=== PATIENT | male | born 1970 | race Hispanic/Latino ===

== ENCOUNTER 2022-11-07 20:13 | Observation (INO) | payer SELFPAY ==
[2022-11-07 20:42] LABS: #Basophils 0.1 thou/uL (0.0-0.2); #Monocytes 0.9 thou/uL (0.11-0.59); #Neutrophils 13.6 thou/uL (1.40-6.50); %Basophils 0.5 % (0.0-1.0); %Lymphocytes 10.5 % (21.0-51.0); %Monocytes 5.2 % (0.0-10.0); %Neutrophils 83.2 % (42.0-75.0); Hemoglobin 16.8 g/dL (14.0-18.0); Mean Corpuscular HGB CONC 34.1 g/dL (32.0-36.0); Mean Corpuscular Hemoglobin 30.9 pg (27.0-31.0); Mean Corpuscular Volume 90.6 fl (78.0-98.0); Mean Platelet Volume 10.8 fL (7.4-10.4); Platelet Count 293 10x3/uL (130-400); RBC Distribution Width 12.3 % (11.5-14.5); Red Blood Cell (RBC) Count 5.44 mill/uL (4.70-6.10); White Blood Cell (WBC) Count 16.4 10x3/uL (4.8-10.8)
[2022-11-07] MEDS ORDERED: Aspirin Chewable 81 MG TAB ONE (20:55)
[2022-11-07 21:04] LABS: ALT (SGPT) 26 U/L (8-55); AST (SGOT) 24 U/L (5-34); Albumin 5.6 g/dL (3.5-5.0); Alkaline Phosphatase 128 U/L (40-110); Anion Gap 19 mmol/L (10-20); BUN (Urea Nitrogen) 22 mg/dL (8.4-25.7); Bilirubin, Total 0.9 mg/dL (0.2-1.2); Calc. Creatinine Clearance 0 mL/min (70-130); Calcium 11.3 mg/dL (7.8-10.44); Carbon Dioxide 23 mmol/L (22-29); Chloride 96 mmol/L (98-107); Estimated GFR 37; Globulin 3.7 g/dL (2.4-3.5); Glucose 102 mg/dL (70-105); Lipase 17 U/L (8-78); Potassium 4.6 mmol/L (3.5-5.1); Protein, Total 9.3 g/dL (6.0-8.3); Sodium 133 mmol/L (136-145)
[2022-11-07] MEDS ORDERED: Nitroglycerin 2% Ointment 1 INCH/1 GM Packet ONE (23:28)
[2022-11-08] MEDS ORDERED: Acetaminophen 325 MG TAB PO PRN (01:50)
[2022-11-08] MEDS ORDERED: Ondansetron PF 4 MG/2 ML Vial IVP PRN (01:50)
[2022-11-08] MEDS ORDERED: Nitroglycerin 0.4 MG TAB (25 Tab Bottle) SL PRN (01:57)
[2022-11-08 02:11] LABS: Amphetamine Not Detected (NotDetected); Barbiturates Screen Not Detected (NotDetected); Benzodiazepine Screen Not Detected (NotDetected); Cocaine Metabolite Screen Not Detected (NotDetected); Methadone Not Detected (NotDetected); Methamphetamine Not Detected (NotDetected); Opiate Screen Not Detected (NotDetected); Oxycodone Screen Not Detected (NotDetected); Phencyclidine (PCP) Not Detected (NotDetected); THC/Cannabinoid Screen Not Detected (NotDetected); Tricyclic Screen Not Detected (NotDetected)
[2022-11-08] MEDS: Sodium Chloride 0.9% 1,000 ML IV SCH ×3 (02:23→23:35)
[2022-11-08 03:00] LABS: Troponin I Less than 0.010 ng/mL (< 0.028)
[2022-11-08 03:22] LABS: Bilirubin Negative (Negative); Blood, Urine Negative (Negative); CAUTI Indications for Culture Dysuria,urgency,freq; Clarity Turbid (Clear); Glucose, Urine (Dipstick) Normal (Negative); Ketone, Urine Trace mg/dL (Negative); Leukocyte Negative Leu/uL (Negative); Nitrite Negative (Negative); Protein, Urine (Dipstick) 30 mg/dL (Neg-Trace); Specific Gravity, Urine 1.025 (1.002-1.036); Squamous Epithelial None Seen HPF (0-3); Urobilinogen Normal mg/dL (Less than 2); WBC/HPF 0-3 HPF (0-3)
[2022-11-08 03:42] LABS: Bacteria/HPF Rare-Few HPF (None Seen); Urine Culture Reflex No No
[2022-11-08 06:22] LABS: #Basophils 0.1 thou/uL (0.0-0.2); #Monocytes 0.9 thou/uL (0.11-0.59); #Neutrophils 8.6 thou/uL (1.40-6.50); %Basophils 0.5 % (0.0-1.0); %Eosinophils 0.3 % (0.0-10.0); %Lymphocytes 18.3 % (21.0-51.0); %Monocytes 7.9 % (0.0-10.0); %Neutrophils 72.4 % (42.0-75.0); Mean Corpuscular HGB CONC 33.8 g/dL (32.0-36.0); Mean Corpuscular Hemoglobin 31.2 pg (27.0-31.0); Mean Corpuscular Volume 92.3 fl (78.0-98.0); Platelet Count 260 10x3/uL (130-400); RBC Distribution Width 12.4 % (11.5-14.5); Red Blood Cell (RBC) Count 4.81 mill/uL (4.70-6.10); White Blood Cell (WBC) Count 11.9 10x3/uL (4.8-10.8)
[2022-11-08 06:43] LABS: Troponin I Less than 0.010 ng/mL (< 0.028)
[2022-11-08 06:45] LABS: Anion Gap 12 mmol/L (10-20); BUN (Urea Nitrogen) 18 mg/dL (8.4-25.7); Calc. Creatinine Clearance 107 mL/min (70-130); Calcium 9.3 mg/dL (7.8-10.44); Carbon Dioxide 24 mmol/L (22-29); Cardiac Risk 3.7 (Less than 4.5); Chloride 102 mmol/L (98-107); Cholesterol 193 mg/dl (< 200 Desired); Estimated GFR 86; Glucose 94 mg/dL (70-105); HDL Cholesterol 52 mg/dL (>60 Neg Risk); LDL Cholesterol, Calculated 106 mg/dL; Potassium 3.8 mmol/L (3.5-5.1); Sodium 134 mmol/L (136-145); Triglycerides 175 mg/dL (Less than 150)
[2022-11-08] MEDS ORDERED: ADENOSINE 60 MG/20 ML SDV ONE (10:13)
[2022-11-08] MEDS ORDERED: Morphine 4 MG/ML VIAL ONE (10:16)
[2022-11-08] MEDS: Heparin 5,000 UNITS/ML VIAL SC SCH ×2 (10:22→19:25)
[2022-11-08] MEDS ORDERED: Morphine 4 MG/ML VIAL SLOW IVP SCH (10:30)
[2022-11-08] MEDS ORDERED: Morphine 4 MG/ML VIAL SLOW IVP PRN (13:00)
[2022-11-08 16:29] VITALS: BMI 32.3
[2022-11-08] MEDS ORDERED: Atorvastatin Calcium 40 MG TAB PO SCH (21:00)
[2022-11-08 23:02] VITALS: TEMP 98.1
[2022-11-09] MEDS: Sodium Chloride 0.9% 1,000 ML IV SCH (03:21)
[2022-11-09 04:49] LABS: #Basophils 0.1 thou/uL (0.0-0.2); #Eosinphils 0.1 thou/uL (0.0-0.7); #Monocytes 0.7 thou/uL (0.11-0.59); #Neutrophils 6.2 thou/uL (1.40-6.50); %Basophils 0.8 % (0.0-1.0); %Lymphocytes 24.1 % (21.0-51.0); %Monocytes 7.3 % (0.0-10.0); %Neutrophils 66.3 % (42.0-75.0); Hemoglobin 14.8 g/dL (14.0-18.0); Mean Corpuscular HGB CONC 33.4 g/dL (32.0-36.0); Mean Corpuscular Hemoglobin 31.3 pg (27.0-31.0); Mean Corpuscular Volume 93.7 fl (78.0-98.0); Mean Platelet Volume 11.3 fL (7.4-10.4); Platelet Count 239 10x3/uL (130-400); RBC Distribution Width 12.2 % (11.5-14.5); Red Blood Cell (RBC) Count 4.73 mill/uL (4.70-6.10); White Blood Cell (WBC) Count 9.3 10x3/uL (4.8-10.8)
[2022-11-09 05:13] LABS: Anion Gap 12 mmol/L (10-20); BUN (Urea Nitrogen) 15 mg/dL (8.4-25.7); Calc. Creatinine Clearance 135 mL/min (70-130); Calcium 8.7 mg/dL (7.8-10.44); Carbon Dioxide 23 mmol/L (22-29); Chloride 105 mmol/L (98-107); Estimated GFR 106; Glucose 96 mg/dL (70-105); Potassium 3.7 mmol/L (3.5-5.1); Sodium 136 mmol/L (136-145)
[2022-11-09 07:57] VITALS: BP 129/71
[2022-11-09] MEDS ORDERED: Aspirin 81 mg Enteric Coated Tablet PO SCH (09:00)
[2022-11-09] MEDS: Heparin 5,000 UNITS/ML VIAL SC SCH (09:17)
== END 2022-11-09 12:45 | disposition home or self-care (01) ==
LOC: ERS 20:13 → ERHOLD 23:39 → 2SW 11-08 13:01
PROVIDERS: ADMIT Internal Medicine; ATTEND Family Medicine
DX: R07.89 Other chest pain (principal); I10 Essential (primary) hypertension; N17.9 Acute kidney failure, unspecified; E83.52 Hypercalcemia; D72.829 Elevated white blood cell count, unspecified; Z79.82 Long term (current) use of aspirin; Z79.899 Other long term (current) drug therapy
CPT/HCPCS: 36415; 71045; 78452; 80048; 80053; 80061; 80306; 81001; 82550; 83036; 83690; 84484; 85025; 93005; 93017; 96361; 96372; 96374; A9500; G0378; J0153; J1644; J2270; J7050

== ENCOUNTER 2022-12-01 09:48 | Inpatient (IN) | payer SELFPAY ==
[2022-12-01] MEDS ORDERED: Iopamidol-370 76% 500 ML MDV (1 ML CHARGE) ONE (10:18)
[2022-12-01 10:38] LABS: #Basophils 0.1 thou/uL (0.0-0.2); #Eosinphils 0.1 thou/uL (0.0-0.7); #Monocytes 0.7 thou/uL (0.11-0.59); #Neutrophils 7.6 thou/uL (1.40-6.50); %Basophils 0.6 % (0.0-1.0); %Eosinophils 0.7 % (0.0-10.0); %Lymphocytes 23.8 % (21.0-51.0); %Monocytes 6.4 % (0.0-10.0); Hemoglobin 15.8 g/dL (14.0-18.0); Mean Corpuscular HGB CONC 33.8 g/dL (32.0-36.0); Mean Corpuscular Hemoglobin 30.6 pg (27.0-31.0); Mean Corpuscular Volume 90.7 fl (78.0-98.0); Platelet Count 269 10x3/uL (130-400); Red Blood Cell (RBC) Count 5.16 mill/uL (4.70-6.10); White Blood Cell (WBC) Count 11.1 10x3/uL (4.8-10.8)
[2022-12-01 10:59] LABS: ALT (SGPT) 22 U/L (8-55); AST (SGOT) 16 U/L (5-34); Albumin 4.9 g/dL (3.5-5.0); Alkaline Phosphatase 106 U/L (40-110); Anion Gap 17 mmol/L (10-20); BUN (Urea Nitrogen) 16 mg/dL (8.4-25.7); Bilirubin, Total 1.1 mg/dL (0.2-1.2); Calc. Creatinine Clearance 0 mL/min (70-130); Calcium 10.1 mg/dL (7.8-10.44); Carbon Dioxide 23 mmol/L (22-29); Chloride 99 mmol/L (98-107); Estimated GFR 105; Globulin 3.1 g/dL (2.4-3.5); Glucose 90 mg/dL (70-105); Potassium 4.5 mmol/L (3.5-5.1); Sodium 134 mmol/L (136-145)
[2022-12-01] MEDS ORDERED: Aspirin Chewable 81 MG TAB ONE (11:24)
[2022-12-01] MEDS ORDERED: Nitroglycerin 2% Ointment 1 INCH/1 GM Packet ONE ×2 (11:24→11:25)
[2022-12-01 12:13] LABS: CK (CPK) 85 U/L (30-200); Lipase 15 U/L (8-78)
[2022-12-01] MEDS ORDERED: hydrALAZINE 20 MG/ML VIAL SLOW IVP PRN (12:13)
[2022-12-01] MEDS ORDERED: Acetaminophen 325 MG TAB PO PRN (12:14)
[2022-12-01] MEDS ORDERED: Ondansetron ODT 4 MG TAB PO PRN (12:14)
[2022-12-01] MEDS ORDERED: Ondansetron PF 4 MG/2 ML Vial IVP PRN (12:14)
[2022-12-01] MEDS ORDERED: Sodium Chloride 0.9% 1,000 ML IV SCH (12:30)
[2022-12-01 13:36] LABS: Cardiac Risk 3.6 (Less than 4.5)
[2022-12-01 14:13] LABS: Troponin I Less than 0.010 ng/mL (< 0.028)
[2022-12-01 14:39] VITALS: BMI 33.0
[2022-12-01 17:16] LABS: Troponin I Less than 0.010 ng/mL (< 0.028)
[2022-12-01] MEDS ORDERED: Communication Order-Pharmacy FS SCH (19:30)
[2022-12-02 06:01] LABS: #Basophils 0.1 thou/uL (0.0-0.2); #Eosinphils 0.1 thou/uL (0.0-0.7); #Monocytes 0.8 thou/uL (0.11-0.59); #Neutrophils 10.2 thou/uL (1.40-6.50); %Basophils 0.5 % (0.0-1.0); %Eosinophils 0.7 % (0.0-10.0); %Lymphocytes 14.9 % (21.0-51.0); %Monocytes 5.9 % (0.0-10.0); %Neutrophils 77.6 % (42.0-75.0); Hemoglobin 14.3 g/dL (14.0-18.0); Mean Corpuscular HGB CONC 33.6 g/dL (32.0-36.0); Mean Corpuscular Volume 92.2 fl (78.0-98.0); Mean Platelet Volume 11.5 fL (7.4-10.4); Platelet Count 228 10x3/uL (130-400); RBC Distribution Width 12.2 % (11.5-14.5); Red Blood Cell (RBC) Count 4.61 mill/uL (4.70-6.10); White Blood Cell (WBC) Count 13.1 10x3/uL (4.8-10.8)
[2022-12-02 06:22] LABS: Anion Gap 12 mmol/L (10-20); BUN (Urea Nitrogen) 16 mg/dL (8.4-25.7); Calc. Creatinine Clearance 134 mL/min (70-130); Calcium 9.2 mg/dL (7.8-10.44); Carbon Dioxide 24 mmol/L (22-29); Chloride 106 mmol/L (98-107); Estimated GFR 106; Glucose 95 mg/dL (70-105); Potassium 4.2 mmol/L (3.5-5.1); Sodium 138 mmol/L (136-145)
[2022-12-02] MEDS: Aspirin Chewable 81 MG TAB PO SCH (08:47)
[2022-12-02] MEDS: Nitroglycerin 0.4 MG TAB (25 Tab Bottle) SL PRN ×2 (20:24→20:32)
[2022-12-03 05:46] LABS: #Basophils 0.1 thou/uL (0.0-0.2); #Eosinphils 0.1 thou/uL (0.0-0.7); #Monocytes 0.7 thou/uL (0.11-0.59); #Neutrophils 6.7 thou/uL (1.40-6.50); %Basophils 0.7 % (0.0-1.0); %Monocytes 6.6 % (0.0-10.0); %Neutrophils 65.9 % (42.0-75.0); Hemoglobin 15.5 g/dL (14.0-18.0); Mean Corpuscular HGB CONC 32.3 g/dL (32.0-36.0); Mean Corpuscular Hemoglobin 30.6 pg (27.0-31.0); Mean Corpuscular Volume 94.9 fl (78.0-98.0); Mean Platelet Volume 11.4 fL (7.4-10.4); Platelet Count 242 10x3/uL (130-400); RBC Distribution Width 12.1 % (11.5-14.5); Red Blood Cell (RBC) Count 5.06 mill/uL (4.70-6.10); White Blood Cell (WBC) Count 10.1 10x3/uL (4.8-10.8)
[2022-12-03 06:07] LABS: Anion Gap 16 mmol/L (10-20); BUN (Urea Nitrogen) 13 mg/dL (8.4-25.7); Calc. Creatinine Clearance 143 mL/min (70-130); Calcium 9.7 mg/dL (7.8-10.44); Carbon Dioxide 20 mmol/L (22-29); Chloride 105 mmol/L (98-107); Estimated GFR 108; Glucose 93 mg/dL (70-105); Potassium 4.2 mmol/L (3.5-5.1); Sodium 137 mmol/L (136-145)
[2022-12-03] MEDS: Aspirin Chewable 81 MG TAB PO SCH (06:09)
[2022-12-03] MEDS ORDERED: Iopamidol 370 76% 100 ML VIAL ONE (08:58)
[2022-12-03] MEDS ORDERED: Verapamil 5 MG/2 ML VIAL ONE (09:39)
[2022-12-03] MEDS ORDERED: Nitroglycerin 50 MG/250 ML BOT 250 ML ONE (09:39)
[2022-12-03] MEDS ORDERED: Heparin 10,000 UNITS/ 10 ML VIAL ONE (09:39)
[2022-12-03] MEDS ORDERED: Lidocaine 1% (PF) 30 ML VIAL ONE (09:40)
[2022-12-03] MEDS ORDERED: Midazolam HCl 2 mg/2 ml Vial ONE (10:09)
[2022-12-03] MEDS ORDERED: fentaNYL 50 mcg/mL 1 mL Vial ONE (10:10)
[2022-12-03] MEDS ORDERED: Sodium Chloride 0.9% 200 ML IV PRN (12:51)
[2022-12-03] MEDS ORDERED: Acetaminophen/Codeine 30-300mg Tablet PO PRN (12:51)
[2022-12-03] MEDS ORDERED: Sodium Chloride 0.9% 500 ML IV SCH (13:00)
[2022-12-03] MEDS ORDERED: Methocarbamol 500 MG TAB PO SCH (13:32)
[2022-12-03] MEDS ORDERED: HYDROcodone/Acetaminophen 5/325 mg Tablet PO SCH (13:45)
[2022-12-03] MEDS: Methocarbamol 500 MG TAB PO SCH (20:35)
[2022-12-03] MEDS ORDERED: Atorvastatin Calcium 40 MG TAB PO SCH (21:00)
[2022-12-04 05:45] LABS: #Basophils 0.1 thou/uL (0.0-0.2); #Eosinphils 0.1 thou/uL (0.0-0.7); #Monocytes 0.6 thou/uL (0.11-0.59); #Neutrophils 7.5 thou/uL (1.40-6.50); %Basophils 0.9 % (0.0-1.0); %Eosinophils 0.9 % (0.0-10.0); %Lymphocytes 20.2 % (21.0-51.0); %Neutrophils 71.3 % (42.0-75.0); Hemoglobin 15.5 g/dL (14.0-18.0); Mean Corpuscular HGB CONC 33.2 g/dL (32.0-36.0); Mean Corpuscular Hemoglobin 30.5 pg (27.0-31.0); Mean Corpuscular Volume 91.7 fl (78.0-98.0); Mean Platelet Volume 11.1 fL (7.4-10.4); Platelet Count 250 10x3/uL (130-400); RBC Distribution Width 12.2 % (11.5-14.5); Red Blood Cell (RBC) Count 5.09 mill/uL (4.70-6.10); White Blood Cell (WBC) Count 10.5 10x3/uL (4.8-10.8)
[2022-12-04 06:07] LABS: Anion Gap 16 mmol/L (10-20); BUN (Urea Nitrogen) 11 mg/dL (8.4-25.7); Calc. Creatinine Clearance 136 mL/min (70-130); Calcium 9.6 mg/dL (7.8-10.44); Carbon Dioxide 21 mmol/L (22-29); Chloride 106 mmol/L (98-107); Estimated GFR 106; Glucose 94 mg/dL (70-105); Potassium 4.1 mmol/L (3.5-5.1); Sodium 139 mmol/L (136-145)
[2022-12-04 08:42] VITALS: BP 118/73; TEMP 98.3
[2022-12-04] MEDS: Methocarbamol 500 MG TAB PO SCH (09:17)
[2022-12-04] MEDS: Aspirin Chewable 81 MG TAB PO SCH (09:18)
[2022-12-04] MEDS ORDERED: Meloxicam 15 MG TAB PO SCH (09:28)
[2022-12-05] MEDS ORDERED: Meloxicam 15 MG TAB PO SCH (09:00)
== END 2022-12-04 10:58 | disposition home or self-care (01) | DRG 206 ==
LOC: ERS 09:48 → 2SW 12:10
PROVIDERS: ADMIT Internal Medicine; ATTEND Internal Medicine
PROC: 4A023N7 Measurement of Cardiac Sampling and Pressure, Left Heart, Percutaneous Approach (ICD-10-PCS; principal; 2022-12-03)
PROC: B2111ZZ Fluoroscopy of Multiple Coronary Arteries using Low Osmolar Contrast (ICD-10-PCS; 2022-12-03)
DX: M94.0 Chondrocostal junction syndrome [Tietze] (principal); E87.1 Hypo-osmolality and hyponatremia; E78.5 Hyperlipidemia, unspecified; E78.1 Pure hyperglyceridemia; F10.90 Alcohol use, unspecified, uncomplicated; D72.829 Elevated white blood cell count, unspecified; G47.33 Obstructive sleep apnea (adult) (pediatric); Z79.899 Other long term (current) drug therapy; Z82.49 Family history of ischemic heart disease and other diseases of the circulatory system
CPT/HCPCS: 36415; 71046; 71275; 80048; 80053; 80061; 82550; 83690; 83880; 84484; 85025; 93005; 93010; 93306; 93458; 99152; 99153; C1769; C1894; J1644; J1650; J2001; J2250; J3010; J7030; J7050; Q9967